=== PATIENT | male | born 1990 | race Caucasian/White ===

== ENCOUNTER 2019-08-26 19:15 | Emergency (ER) | payer OTHER ==
--- NOTE | 2019-08-26 19:38 | PDOC ---
Rapid Medical Evaluation Time Seen by Provider: 08/26/19 19:37 Medical Evaluation: 08/26/19 19:37 I have performed a brief in-person evaluation of this patient. The patient presents with a chief complaint of: white penile discharge with burning x 1 week Pertinent physical exam findings: n/a I have ordered the following: urine The patient will proceed to the ED for further evaluation. Discharge Disposition - Diagnosis Penile discharge - Referrals - Patient Instructions - Post Discharge Activity
[2019-08-26 19:42] VITALS: BP 115/71; PULSE 90; TEMP 98.1; BMI 30.4
--- NOTE | 2019-08-26 20:16 | PDOC ---
History of Present Illness - General Chief Complaint: Penile Drainage Stated Complaint: EVALUATION Time Seen by Provider: 08/26/19 19:37 History Source: Patient - History of Present Illness Initial Comments: 08/26/19 21:12 28 year old male c/o penile discharge, reports multiple female partners. unsure of STD exposure. denies dysuria, testicular pain, testicular swelling, abdominal pain, fever/ chills PMHX: STD 08/26/19 21:24 Past History - Past Medical History Allergies/Adverse Reactions: Allergies Allergy/AdvReac Type Severity Reaction Status Date / Time No Known Allergies Allergy Verified 08/26/19 19:39 COPD: No - Psycho Social/Smoking Cessation Hx Smoking History: Current every day smoker Number of Cigarettes Smoked Daily: 5 Information on smoking cessation initiated: Yes Hx Alcohol Use: No Drug/Substance Use Hx: No Review of Systems - Review of Systems Able to Perform ROS?: Yes Is the patient limited Setswana proficient: No : Yes: Other (penile discharge). No: Testicular Mass, Testicular Swelling *Physical Exam - Vital Signs Last Vital Signs Temp Pulse Resp BP Pulse Ox 98.1 F 90 20 115/71 98 08/26/19 19:39 08/26/19 19:39 08/26/19 19:39 08/26/19 19:39 08/26/19 19:39 - Physical Exam General Appearance: Yes: Appropriately Dressed Male Genitalia: positive: normal genitalia, other (white penile discharge). negative: testicular tenderness, testicular mass, epididymus tender, inguinal hernia Extremity: positive: Normal Capillary Refill, Normal Inspection Integumentary: positive: Normal Color, Dry, Warm Neurologic: positive: Fully Oriented, Alert, Normal Mood/Affect ED Progress Note - Progress Note Progress Note: STI P: ceftriaxone azithromycin GC ua urine culture offered RPR and HIV testing. patient refused. Discharge - Discharge Information Problems reviewed: Yes Clinical Impression/Diagnosis: Penile discharge, STD exposure Disposition: HOME - Follow up/Referral - Patient Discharge Instructions Patient Printed Discharge Instructions: Facts About Sexually Transmitted Infections Additional Instructions: your results take 2-3 days . we will call you is your results are positive. you were treated for presumptive gonorrhea and chlamydia. please inform your partners for treatment. No sex for 1 week. return to the ER for any worsening symptoms - Post Discharge Activity Work/Back to School Note: Back to Work
[2019-08-26] MEDS ORDERED: AZITHROMYCIN 500 MG TABLET PO ONE (20:56)
[2019-08-26] MEDS ORDERED: cefTRIAXone SODIUM 1 GM VIAL ONE (21:23)
[2019-08-26] MEDS ORDERED: AZITHROMYCIN 250 MG TABLET ONE (21:23)
[2019-08-26 21:27] LABS: EPI CELLS 2.1 /HPF (0-5/HPF); HYALINE CASTS 31 /lpf (0-8); PH,URINE 6.5 (5.0-8.0); URINE APPEARANCE CLEAR; URINE BACTERIA 3.4 /hpf (NEGATIVE); URINE BILIRUBIN NEGATIVE (NEGATIVE); URINE COLOR YELLOW; URINE GLUCOSE (UA) NEGATIVE (NEGATIVE); URINE KETONE NEGATIVE (NEGATIVE); URINE LEUK ESTERASE 1+ (NEGATIVE); URINE NITRITE NEGATIVE (NEGATIVE); URINE PROTEIN NEGATIVE (NEGATIVE); URINE RBC 3 /hpf (0-4); URINE UROBILINOGEN 0.2 mg/dL (0.2-1.0); URINE WBC 77 /hpf (0-5)
== END 2019-08-26 21:41 | disposition home or self-care (01) ==
LOC: JERFT 19:15 → JER 19:15 → JERFT 21:41
DX: Z11.3 Encounter for screening for infections with a predominantly sexual mode of transmission (principal); N50.9 Disorder of male genital organs, unspecified; F17.210 Nicotine dependence, cigarettes, uncomplicated
CPT/HCPCS: 36415; 81003; 87086; 87491; 87591; 99282-25

== ENCOUNTER 2019-09-01 18:39 | Emergency (ER) | payer OTHER ==
--- NOTE | 2019-09-01 18:56 | PDOC ---
Rapid Medical Evaluation Time Seen by Provider: 09/01/19 18:52 Medical Evaluation: Allergies Allergy/AdvReac Type Severity Reaction Status Date / Time No Known Allergies Allergy Verified 09/01/19 18:49 09/01/19 18:52 Healthy 28-year-old male seen in Urgent Care in [place] today for hand injury , has comminuted first phalanx fracture. Walking in today hoping for orthopedic consultation and MRI. Patient counseled that neither is possible on an emergent basis. Pertinent physical exam findings: right hand swollen, ecchymotic, wrapped. I have ordered the following: None Patient to proceed to [facility] for further evaluation. Discharge Disposition - Diagnosis Finger fracture, right - Referrals - Patient Instructions - Post Discharge Activity
[2019-09-01 18:57] VITALS: BP 127/60; PULSE 89; TEMP 97.7; BMI 28.8
--- NOTE | 2019-09-01 20:03 | PDOC ---
History of Present Illness - General Chief Complaint: Injury Stated Complaint: RT THUMB INJURY Time Seen by Provider: 09/01/19 18:52 - History of Present Illness Initial Comments: 09/01/19 20:01 28-year-old male presents for evaluation of right thumb fracture. He was working today twisted his right thumb and went to an urgent care who was seen and told he had a fracture of his right thumb. Told to follow-up with orthopedic surgery he comes in today to the emergency room for an orthopedic surgery consultation Past History - Past Medical History Allergies/Adverse Reactions: Allergies Allergy/AdvReac Type Severity Reaction Status Date / Time No Known Allergies Allergy Verified 09/01/19 18:49 COPD: No - Psycho Social/Smoking Cessation Hx Smoking History: Current every day smoker Have you smoked in the past 12 months: Yes Number of Cigarettes Smoked Daily: 5 Information on smoking cessation initiated: Yes Hx Alcohol Use: No Drug/Substance Use Hx: No Review of Systems - Review of Systems Musculoskeletal: Yes: Joint Pain *Physical Exam - Vital Signs Last Vital Signs Temp Pulse Resp BP Pulse Ox 97.7 F 89 18 127/60 100 09/01/19 18:50 09/01/19 18:50 09/01/19 18:50 09/01/19 18:50 09/01/19 18:50 - Physical Exam 09/01/19 20:01 Right thumb is ecchymotic there is superficial abrasions on the radial and ulnar aspect of the right thumb. Tenderness about the MCP J and proximal phalanx. No gross sensorimotor deficits neurovascular intact Medical Decision Making - Medical Decision Making 09/01/19 20:02 Radiology report shows a comminuted proximal phalanx fracture which is nondisplaced Thumb spica splint was applied orthopedic surgery follow-up was given Discharge - Discharge Information Problems reviewed: Yes Clinical Impression/Diagnosis: Finger fracture, right Condition: Stable Disposition: HOME - Admission No - Follow up/Referral Referrals: Chuck Walker MD [Staff Physician] - - Patient Discharge Instructions Additional Instructions: Tylenol and Motrin for pain as directed. Without fail please follow-up with orthopedic surgery in 2 to 3 days for further evaluation and treatment options. Return to the emergency room for worsening symptoms - Post Discharge Activity
== END 2019-09-01 20:00 | disposition home or self-care (01) ==
LOC: JERFT 18:39
CPT/HCPCS: 99281-25